=== PATIENT | female | born 1990 | race Caucasian/White ===

== ENCOUNTER 2017-02-11 17:20 | Emergency (ER) | payer MEDICARE, OTHER ==
[2017-02-11] MEDS: MAG HYDROX/AL HYDROX/SIMETH 30 ML, Lidocaine 2%Visc 15ml 20 MG, PHENobarb/HYOSCY/ATROPI... PO ONE ×3 (17:45)
[2017-02-11 18:03] VITALS: BP 115/64
[2017-02-11] MEDS ORDERED: MAG HYDROX/AL HYDROX/SIMETH 30 ML UDC PO ONE (18:21)
[2017-02-11] MEDS ORDERED: Lidocaine 2%Visc 15ml 20 MG/ML UDC ONE (18:21)
--- NOTE | 2017-02-11 19:12 | ED Physician Documentation ---
Abdominal Pain - HISTORIAN Historian: patient, other (care givers) - HPI Stated Complaint: Drank bleach Chief Complaint: Abdominal Pain Additonal Information: pt drank 1 cup bleech diluted armand water approx 1730 now mouth burning and stomach upset-stiles. called poison control gave gi coctail and pt to brush teeth now obvserve w/anti emetics as needed. verbal orders given unable to find in computer orders Onset: hours (1729) Duration: constant Timing: still present Context: bad food Severity: moderate Quality: burning Associated Symptoms: nausea, vomiting (x1 shortly after ingestion) Further Comments: yes (pt did this once before tx [facility]) - ROS CONST: no problems GI/: none CVS/RESP: none EYES/ENT: none MS/SKIN/LYMPH: none NEURO/PSYCH: anxiety - SOCIAL HX Smoking History: non-smoker Alcohol Use: none - FAMILY HX Family History: none - PAST HX Past History: other (bipolar and mental retardation) Home Medications: Ambulatory Orders Medication Instructions Recorded Aripiprazole [Abilify] 30 mg PO DAILY 02/11/17 Carbamazepine [Tegretol] 200 mg PO BID 02/11/17 Divalproex Sodium [Depakote ER] 250 mg PO BID 02/11/17 Divalproex Sodium [Depakote] 500 mg PO BID 02/11/17 Docusate Sodium [Dok] 100 mg PO PRN 02/11/17 Erythromycin Base/Ethanol 30 gm TP HS 02/11/17 [Erythromycin 2% Gel] Hydroxyzine Pamoate [Vistaril] 25 mg PO TID 02/11/17 Ibuprofen [Advil] 600 mg PO Q6 PRN 02/11/17 Medroxyprogesterone Acetate 150 mg IM DIRECTED 02/11/17 [Depo-Provera] Trazodone HCl 50 mg PO HS PRN 02/11/17 Trazodone HCl [Desyrel] 100 mg PO HS 02/11/17 Venlafaxine HCl [Effexor Xr] 150 mg PO DAILY 02/11/17 clonazePAM [Klonopin] 0.5 mg PO BID 02/11/17 Allergies/Adverse Reactions: Allergies Allergy/AdvReac Type Severity Reaction Status Date / Time No Known Allergies Allergy Unverified 02/11/17 17:43 - VITAL SIGNS Vital Signs: Vital Signs Temp Pulse Resp BP Pulse Ox 84 16 115/64 96 02/11/17 18:01 02/11/17 17:34 02/11/17 18:01 02/11/17 18:01 - REVIEWED ASSESSMENTS Nursing Assessment Reviewed: Yes Vitals Reviewed: Yes Progress - Results/Orders Results/Orders: pt sig better w/o furthur c/o but weill obs in waiting room send [id number] min if no occurence. pt will have care givers w/her all noct ED Results Lab/Radiology - Orders Orders: ED Orders Category Date Time Status Lidocaine 2%Visc 15ml [Xylocaine] Med 02/11/17 18:21 Discontinued 300 mg .ROUTE .STK-MED ONE Mag Hydrox/Al Hydrox/Simeth [Mylanta] Med 02/11/17 18:21 Discontinued 30 ml PO .STK-MED ONE Abdominal Pain Physical Exam - Physical Exam General Appearance: mild distress EENT: eye inspection normal NECK: normal inspection, thyroid normal, supple RESPIRATORY: no resp distress, breath sounds normal CVS: reg rate & rhythm, heart sounds normal ABDOMEN: soft, tenderness (mild tenderness no guarding) EXTREMITIES: non-tender, normal range of motion, no evidence of injury, no edema NEURO: oriented X3, motor nml, sensation nml, mood/affect nml Vital Signs: Vital Signs Temp Pulse Resp BP Pulse Ox 84 16 115/64 96 02/11/17 18:01 02/11/17 17:34 02/11/17 18:01 02/11/17 18:01 Discharge Clincal Impression: foriegn body ingestion-bleech, Mild mental retardation, depression anxiety Referrals: Primary Doctor,No [Primary Care Provider] - 2 Days Additional Instructions: close observation by care givers Home Medications: Ambulatory Orders Aripiprazole [Abilify] 30 mg PO DAILY 02/11/17 Carbamazepine [Tegretol] 200 mg PO BID 02/11/17 Divalproex Sodium [Depakote ER] 250 mg PO BID 02/11/17 Divalproex Sodium [Depakote] 500 mg PO BID 02/11/17 Docusate Sodium [Dok] 100 mg PO PRN 02/11/17 Erythromycin Base/Ethanol [Erythromycin 2% Gel] 30 gm TP HS 02/11/17 Hydroxyzine Pamoate [Vistaril] 25 mg PO TID 02/11/17 Ibuprofen [Advil] 600 mg PO Q6 PRN 02/11/17 Medroxyprogesterone Acetate [Depo-Provera] 150 mg IM DIRECTED 02/11/17 Trazodone HCl 50 mg PO HS PRN 02/11/17 Trazodone HCl [Desyrel] 100 mg PO HS 02/11/17 Venlafaxine HCl [Effexor Xr] 150 mg PO DAILY 02/11/17 clonazePAM [Klonopin] 0.5 mg PO BID 02/11/17 Comments: DR ANDRADE will assume care if needed after shift change Condition: Good Disposition: 01 HOME, SELF-CARE Decision to Admit: NO Decision Time: 19:12
== END 2017-02-11 18:55 | disposition home or self-care (01) ==
LOC: ED 17:20
DX: T54.94XA Toxic effect of unspecified corrosive substance, undetermined, initial encounter (principal); X58.XXXA Exposure to other specified factors, initial encounter; Y93.9 Activity, unspecified; Y99.9 Unspecified external cause status; F70 Mild intellectual disabilities; F32.9 Major depressive disorder, single episode, unspecified; F41.8 Other specified anxiety disorders
CPT/HCPCS: A9270 ×2; 99283

== ENCOUNTER 2018-01-07 21:45 | Emergency (ER) | payer MEDICARE, OTHER ==
[2018-01-07] MEDS ORDERED: 0.9 % SODIUM CHLORIDE 1,000 ML IV SCH (22:30)
[2018-01-07] MEDS ORDERED: 0.9 % SODIUM CHLORIDE 1,000 ML IV ONE (22:45)
[2018-01-07 23:14] LABS: BASOPHILS % 0.4 (0.0-1.5); EOSINOPHILS % 2.8 % (0.0-6.8); MEAN CORPUSCULAR HEMOGLOBIN 29.2 pg (28.0-34.0); MONOCYTES % 5.7 % (0.0-11.0); NEUTROPHILS # 2.5 # k/uL (1.4-7.7)
[2018-01-07 23:15] LABS: eGFR (African) > 60; eGFR (Non-African) > 60
--- NOTE | 2018-01-07 23:51 | ED Physician Documentation ---
General Adult - HISTORIAN Historian: patient - HPI Stated Complaint: Possible drug overdose Chief Complaint: General Adult Additional Information: Pt. claims she took 7 Trazadone, 3 Abilify, 9 Depakoate, 4 Lamictal Onset: minutes (30) Timing: still present Severity: other (n/a, pt in no distress at all) Modifying Factors: took another pt's medication to see what it would do Location: care facility Further Comments: no - ROS CONST: no problems EYES/ENT: none CVS/RESP: none GI/: none MS/SKIN/LYMPH: none NEURO/PSYCH: denies: headache, fainting, dizziness, tingling, numbness, difficulty walking, difficulty with speech, anxiety, depression - PAST HX Past History: other (bipolar, mr) Other History: none Surgeries/Procedures: none Immunizations: referred to PCP Allergies/Adverse Reactions: Allergies Allergy/AdvReac Type Severity Reaction Status Date / Time No Known Allergies Allergy Verified 01/07/18 22:04 Home Medications: Ambulatory Orders Medication Instructions Recorded Aripiprazole [Abilify] 30 mg PO DAILY 02/11/17 Carbamazepine [Tegretol] 200 mg PO BID 02/11/17 Divalproex Sodium [Depakote] 1,000 mg PO BID 02/11/17 Docusate Sodium [Dok] 100 mg PO DAILY 02/11/17 Erythromycin Base/Ethanol 30 gm TP HS 02/11/17 [Erythromycin 2% Gel] Hydroxyzine Pamoate [Vistaril] 25 mg PO TID 02/11/17 Ibuprofen [Advil] 600 mg PO Q6 PRN 02/11/17 Medroxyprogesterone Acetate 150 mg IM DIRECTED 02/11/17 [Depo-Provera] Trazodone HCl [Desyrel] 100 mg PO HS 02/11/17 Venlafaxine HCl [Effexor Xr] 225 mg PO DAILY 02/11/17 clonazePAM [Klonopin] 0.5 mg PO BID 02/11/17 Acetaminophen [Tylenol] 325 mg PO Q4 PRN 01/07/18 Cetirizine HCl [Zyrtec] 10 mg PO DAILY 01/07/18 Mag Hydrox/Aluminum Hyd/Simeth 15 ml PO PRN PRN 01/07/18 [Mylanta] Polyethylene Glycol 3350 [Miralax] 17 gm PO 1100 01/07/18 - SOCIAL HX Smoking History: cigarettes Alcohol Use: none Drug Use: none - FAMILY HX Family History: Yes - VITAL SIGNS Vital Signs: Vital Signs Temp Pulse Resp BP Pulse Ox 98.6 F 90 18 133/65 96 01/07/18 21:45 01/07/18 21:45 01/07/18 21:45 01/07/18 21:45 01/07/18 21:45 - REVIEWED ASSESSMENTS Nursing Assessment Reviewed: Yes Vitals Reviewed: Yes Progress - Results/Orders Results/Orders: cbc, cmp, ua, udes, valproic acid level, lamictal level ordered - Progress Progress: pt. stable entire time in er Critical Care Note - Critical Care Note Total Time (mins): 0 ED Results Lab/Radiology - Lab Results Lab Results: Lab Results 01/07/18 01/07/18 22:55 22:55 WBC 5.80 K/ul K/ul (4.00-12.00) RBC 4.50 M/ul M/ul (3.90-5.20) Hgb 13.1 g/dL g/dL (12.0-16.0) Hct 40.0 % % (34.5-46.5) MCV 89.0 fl fl (80.0-100.0) MCH 29.2 pg pg (28.0-34.0) MCHC 32.8 g/dL g/dL (30.0-36.0) RDW 12.4 % % (11.3-14.3) Plt Count 166 K/mm3 K/mm3 (130-400) Neut % (Auto) 43.1 % % (39.0-79.0) Lymph % (Auto) 46.5 % % (16.0-50.0) [place] % (Auto) 5.7 % % (0.0-11.0) Eos % (Auto) 2.8 % % (0.0-6.8) Baso % (Auto) 0.4 (0.0-1.5) Neut # (Auto) 2.5 # k/uL # k/uL (1.4-7.7) Lymph # (Auto) 2.7 # k/uL # k/uL (0.6-4.0) [place] # (Auto) 0.3 # k/uL # k/uL (0.0-0.9) Eos # (Auto) 0.2 # k/uL # k/uL (0.0-0.6) Baso # (Auto) 0.0 # k/uL # k/uL (0.0-0.5) Reactive Lymphs % 1.6 % % (0.0-5.0) Reactive Lymphs # 0.1 # k/uL # k/uL (0.0-0.8) Sodium 142 mmol/L mmol/L (136-145) Potassium 4.1 mmol/L mmol/L (3.5-5.1) Chloride 103 mmol/L mmol/L (98-107) Carbon Dioxide 27 mmol/L mmol/L (22-30) BUN 12 mg/dL mg/dL (7-17) Creatinine 0.70 mg/dL mg/dL (0.52-1.04) Est GFR ( Amer) > 60 (60 - ) Est GFR (Non-Af Amer) > 60 (60 - ) Glucose 109 mg/dL H mg/dL (74-106) Calcium 9.1 mg/dL mg/dL (8.4-10.2) Total Bilirubin 0.5 mg/dL mg/dL (0.2-1.3) AST 33 U/L U/L (15-46) ALT 46 U/L U/L (13-69) Alkaline Phosphatase 84 U/L U/L (38-126) Total Protein 6.7 g/dL g/dL (6.3-8.2) Albumin 4.0 g/dL g/dL (3.5-5.0) - Radiology Radiology Impressions: none ordered - Orders Orders: ED Orders Category Date Time Status Place IV Lock 1T Care 01/07/18 22:09 Active CBC/PLATELET/DIFF Routine Lab 01/07/18 22:55 Completed CMP Routine Lab 01/07/18 22:55 Completed DRUG SCREEN URINE MEDICAL ONLY Routine Lab 01/07/18 Ordered LAMOTRIGINE LEVEL Routine Lab 01/07/18 22:55 Received URINALYSIS Routine Lab 01/07/18 22:08 Ordered VALPROIC ACID LEVEL Routine Lab 01/07/18 22:55 Received 0.9 % Sodium Chloride [Normal Saline] 1,000 ml Med 01/07/18 22:30 Ordered IV .Q1H EKG WITH COMPARISON Routine Ther 01/07/18 Ordered General Adult Physical Exam - PHYSICAL EXAM GENERAL APPEARANCE: no distress EENT: eye inspection normal, ENT inspection normal, pharynx normal, no signs of dehydration, APM, no nystagmus, TM's nml NECK: normal inspection, thyroid normal, supple RESPIRATORY: no resp distress, chest non-tender, breath sounds normal CVS: reg rate & rhythm, heart sounds normal, equal pulses, no murmur ABDOMEN: soft, no organomegaly, normal bowel sounds, no distension, tenderness ( generalized) BACK: normal inspection, no CVA tenderness SKIN: warm/dry, normal color EXTREMITIES: non-tender, normal range of motion, no evidence of injury, no edema NEURO: oriented X3, CN's nml as tested, motor nml, sensation nml, mood/affect nml Discharge Clincal Impression: Drug ingestion Qualifiers: Encounter type: initial encounter Injury intent: undetermined intent Qualified Code(s): T50.904A - Poisoning by unspecified drugs, medicaments and biological substances, undetermined, initial encounter Referrals: Martin Lamb [Primary Care Provider] - 2 Days Comments: Patient monitored for over 2 hours without any adverse changes. All labs, ekg unremarkable. There is serious question whether this pt. took any of the alleged medications. She is exhibiting no evidence of adverse effect 4 hours after ingestion. All alleged medications investigated and pt. not exposed to large enough doses for any harm. Pt. discharged in stable condition to correction to be followed by primary care. Condition: Stable Disposition: 01 HOME, SELF-CARE Decision to Admit: NO Decision Time: 23:55
[2018-01-08 00:16] VITALS: BP 109/51
[2018-01-08 00:34] LABS: APPEARANCE,URINE CLEAR (CLEAR); COLOR,URINE YELLOW (YELLOW)
[2018-01-08 00:35] LABS: OCCULT BLOOD,URINE NEGATIVE (NEGATIVE); PH URINE 6.5 (5.0 - 8.0); UROBILINOGEN URINE 0.2 Eu (0.2-1.0)
[2018-01-08 00:36] LABS: CANNABINOIDS NEGATIVE ng/mL (< 50); METHYLENEDIOXYMETHAMPHETAMINE NEGATIVE ng/mL (<500)
[2018-01-08 20:20] LABS: VALPROIC ACID LEVEL 78.2 ug/mL (50.0-100.0)
== END 2018-01-08 00:15 | disposition home or self-care (01) ==
LOC: ED 21:45
DX: T50.904A Poisoning by unspecified drugs, medicaments and biological substances, undetermined, initial encounter (principal); Y92.9 Unspecified place or not applicable
CPT/HCPCS: 80053; 80164; 80171; 81002; 85025; 93005; 96360; 99284; G0481; J7030; 80377; 96365; 99283; S1016

== ENCOUNTER 2018-09-01 16:42 | Emergency (ER) | payer MEDICARE, OTHER ==
--- NOTE | 2018-09-01 17:31 | ED Physician Documentation ---
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 pt presents to the ED via POV c/o fall off horse at slow speed falling on her left side. pt c/o back pain 04/09. pt reports she did not hit her head or lose consciousness, no loss of bowel or bladder control, no numbness or tingling able to ambulate without difficulty. pt reports sitting makes the pain worse. pt lives in a intermediate due to mild MR and psych hx. pt has hx of bipolar/depression. pt denies current chest pain, dyspnea, syncope/near syncope, headache, dizziness, visual disturbances, n/v/d, fever/chills, rash, sick contacts, dysuria, trauma. melena or hematochezia, bleeding or easy bruising, change in bowel or bladder function, no recent weight loss/gain, anxiety or depression. ROS Negative unless otherwise specified - ROS CONST: other (back pain ) - PAST HX Past History: other (MR, bipolar anxiety) Allergies/Adverse Reactions: Allergies Allergy/AdvReac Type Severity Reaction Status Date / Time No Known Allergies Allergy Verified 09/01/18 16:53 Home Medications: Ambulatory Orders Medication Instructions Recorded Aripiprazole [Abilify] 30 mg PO DAILY 02/11/17 Carbamazepine [Tegretol] 200 mg PO BID 02/11/17 Divalproex Sodium [Depakote] 1,000 mg PO BID 02/11/17 Docusate Sodium [Dok] 100 mg PO DAILY 02/11/17 Hydroxyzine Pamoate [Vistaril] 25 mg PO TID 02/11/17 Ibuprofen [Advil] 600 mg PO Q6 PRN 02/11/17 Medroxyprogesterone Acetate 150 mg IM DIRECTED 02/11/17 [Depo-Provera] Trazodone HCl [Desyrel] 100 mg PO HS 02/11/17 Venlafaxine HCl [Effexor Xr] 225 mg PO DAILY 02/11/17 clonazePAM [Klonopin] 0.5 mg PO BID 02/11/17 Acetaminophen [Tylenol] 325 mg PO Q4 PRN 01/07/18 Cetirizine HCl [Zyrtec] 10 mg PO DAILY 01/07/18 Mag Hydrox/Aluminum Hyd/Simeth 15 ml PO PRN PRN 01/07/18 [Mylanta] Polyethylene Glycol 3350 [Miralax] 17 gm PO 1100 01/07/18 CloNIDine HCL [Catapress] 2 tab PO DAILY 09/01/18 Haloperidol 1 tab PO DAILY 09/01/18 Metformin HCl [Glucophage] 1 tab PO DAILY 09/01/18 - SOCIAL HX Smoking History: non-smoker Alcohol Use: none Drug Use: none - FAMILY HX Family History: No - VITAL SIGNS Vital Signs: Vital Signs Temp Pulse Resp BP Pulse Ox 100 H 15 165/108 96 09/01/18 16:50 09/01/18 16:50 09/01/18 16:50 09/01/18 16:50 - REVIEWED ASSESSMENTS Nursing Assessment Reviewed: Yes Vitals Reviewed: Yes ED Results Lab/Radiology - Radiology Radiology Impressions: Report Submission Date: Sep 01, 2018 6:11:13 PM NUCLEAR CARDIOLOGY TECHNOLOGIST Patient Study Name: DORIAN CORBIN Date: Sep 01, 2018 5:30:42 PM NUCLEAR CARDIOLOGY TECHNOLOGIST Modality Type: CT\SR Gender: F Description: CT BRAIN W/O CONTRAST : 89 Institution: [facility] Physician: LEAH HIDALGO CT head without contrast HISTORY Fall, head injury. TECHNIQUE Images through the brain were obtained without contrast. FINDINGS No mass, midline shift, obstructive hydrocephalous or acute intracranial hemorrhage is present. The ventricles are normal. No extra-axial fluid collection is identified. There is partial opacification of the right maxillary sinus. IMPRESSION No acute intracranial process. Electronically signed on Sep 01, 2018 6:11:13 PM NUCLEAR CARDIOLOGY TECHNOLOGIST by: Perfecto Bradley Report Submission Date: Sep 01, 2018 6:11:55 PM NUCLEAR CARDIOLOGY TECHNOLOGIST Patient Study Name: DORIAN CORBIN Date: Sep 01, 2018 5:31:22 PM NUCLEAR CARDIOLOGY TECHNOLOGIST Modality Type: DX Gender: F Description: SPINE : 89 Institution: [facility] Physician: LEAH HIDALGO Lumbar spine, AP and lateral. HISTORY Fall, injury. FINDINGS No fracture, subluxation or abnormal bone production or destruction is identified. The vertebral bodies and intervertebral disk spaces are of normal height. IMPRESSION Normal. Electronically signed on Sep 01, 2018 6:11:55 PM NUCLEAR CARDIOLOGY TECHNOLOGIST by: Perfecto Bradley Report Submission Date: Sep 01, 2018 6:13:02 PM NUCLEAR CARDIOLOGY TECHNOLOGIST Patient Study Name: DORIAN CORBIN Date: Sep 01, 2018 5:33:02 PM NUCLEAR CARDIOLOGY TECHNOLOGIST Modality Type: CT\SR Gender: F Description: CT C-SPINE W/O CONTRAS : 89 Institution: [facility] Physician: LEAH HIDALGO CT cervical spine HISTORY Fall, injury, pain. TECHNIQUE Images through the cervical spine were obtained. Multiplanar reconstructions were performed. FINDINGS No fracture, subluxation or abnormal bone production or destruction is identified. The vertebral bodies and intervertebral disk spaces are of normal height. Spinal canal, facet joints and prevertebral soft tissues are normal. IMPRESSION Normal. Electronically signed on Sep 01, 2018 6:13:02 PM NUCLEAR CARDIOLOGY TECHNOLOGIST by: Perfecto Bradley - Orders Orders: ED Orders Category Date Time Status CT BRAIN W/O CONTRAST Stat Exams 09/01/[address] C-SPINE W/O CONTRAST Stat Exams 09/01/18 Ordered L SPINE 2 OR 3 VIEWS [RAD] Stat Exams 09/01/18 Ordered URINE HCG Stat Lab 09/01/18 17:04 Ordered General Adult Physical Exam - PHYSICAL EXAM GENERAL APPEARANCE: no distress EENT: eye inspection normal, ENT inspection normal, pharynx normal, no signs of dehydration, PAM, no nystagmus, TM's nml NECK: normal inspection, thyroid normal. No: lymphadenopathy, meningismus, Brudzinski's RESPIRATORY: no resp distress, chest non-tender, breath sounds normal. No: wheezes, rales, rhonchi CVS: reg rate & rhythm, heart sounds normal, equal pulses, no murmur, no gallop, PMI nml, no JVD, no friction rub, 24 ABDOMEN: soft, no organomegaly, normal bowel sounds, no abdominal bruit, no distension BACK: other (mild paravertebral tenderness. L spine tenderness. ) EXTREMITIES: non-tender, normal range of motion, no evidence of injury, no edema, other (no ecchymosis) NEURO: oriented X3, motor nml, sensation nml, mood/affect nml Discharge Clincal Impression: Mild mental retardation Fall Qualifiers: Encounter type: initial encounter Qualified Code(s): W19.XXXA - Unspecified fall, initial encounter Referrals: Martin Lamb [Primary Care Provider] - 2 Days Additional Instructions: Use tylenol and ibuprofen for pain Rest Return if worse seek medical care immediately if difficult to wake, difficulty breathing, feeling faint or fainting, increased rash, chest pain, shortness of breath, or fever not controlled by tylenol/motrin or any concern. follow up with primary care next week or before if not improving as expected. PLEASE UNDERSTAND THAT THIS IS AN EMERGENCY EVALUATION FOR YOUR COMPLAINT AND BY NATURE IS LIMITED AND NOT A SUBSTITUTE FOR ONGOING MEDICAL CARE. EVEN THOUGH TE ST RESULTS AND TREATMENT PLAN WERE EXPLAINED THERE MAY BE A NEED FOR ADDITIONAL TESTING TO FULLY DETERMINE THE EXTENT OF YOUR ILLNESS/INJURY/OR CONCERN SO YOU SHOULD CONTACT AND OR ESTABLISH WITH A PRIMARY CARE PROVIDER (OR REFERRAL DOCTOR IF APPLICABLE) FOR AN APPOINTMENT SOON POSSIBLE Condition: Good Disposition: 01 HOME, SELF-CARE Decision to Admit: NO Date of Decison to Admit: 09/01/18 Decision Time: 18:22
[2018-09-01 18:33] VITALS: BP 142/72
--- NOTE | 2018-09-02 00:34 | Diagnostic Imaging Report ---
LEAH HIDALGO [facility] [address] [facility] [address] [place] [address]. [id number] Report Submission Date: Sep 01, 2018 6:11:13 PM STRIP MACHINE TENDER Patient Study Name: DORIAN CORBIN Date: Sep 01, 2018 5:30:42 PM STRIP MACHINE TENDER Modality Type: CT\SR Gender: F Description: CT BRAIN W/O CONTRAST : 89 Institution: [facility] Physician: LEAH HIDALGO CT head without contrast HISTORY Fall, head injury. TECHNIQUE Images through the brain were obtained without contrast. FINDINGS No mass, midline shift, obstructive hydrocephalous or acute intracranial hemorrhage is present. The ventricles are normal. No extra-axial fluid collection is identified. There is partial opacification of the right maxillary sinus. IMPRESSION No acute intracranial process. Electronically signed on Sep 01, 2018 6:11:13 PM STRIP MACHINE TENDER by: Perfecto SIMON
--- NOTE | 2018-09-02 00:35 | Diagnostic Imaging Report ---
LEAH HIDALGO [facility] [address] [facility] [address] [place] [address]. [id number] Report Submission Date: Sep 01, 2018 6:13:02 PM OPERATOR LIGHTS Patient Study Name: DORIAN CORBIN Date: Sep 01, 2018 5:33:02 PM OPERATOR LIGHTS Modality Type: CT\SR Gender: F Description: CT C-SPINE W/O CONTRAS : 89 Institution: [facility] Physician: LEAH HIDALGO CT cervical spine HISTORY Fall, injury, pain. TECHNIQUE Images through the cervical spine were obtained. Multiplanar reconstructions were performed. FINDINGS No fracture, subluxation or abnormal bone production or destruction is identified. The vertebral bodies and intervertebral disk spaces are of normal height. Spinal canal, facet joints and prevertebral soft tissues are normal. IMPRESSION Normal. Electronically signed on Sep 01, 2018 6:13:02 PM OPERATOR LIGHTS by: Perfecto SIMON
--- NOTE | 2018-09-02 00:38 | Diagnostic Imaging Report ---
LEAH HIDALGO [facility] [address] [facility] [address] [address] Report Submission Date: Sep 01, 2018 6:11:55 PM INDUSTRIAL ENGINEERING INTERN Patient Study Name: DORIAN CORBIN Date: Sep 01, 2018 5:31:22 PM INDUSTRIAL ENGINEERING INTERN Modality Type: DX Gender: F Description: SPINE : 89 Institution: [facility] Physician: LEAH HIDALGO Lumbar spine, AP and lateral. HISTORY Fall, injury. FINDINGS No fracture, subluxation or abnormal bone production or destruction is identified. The vertebral bodies and intervertebral disk spaces are of normal height. IMPRESSION Normal. Electronically signed on Sep 01, 2018 6:11:55 PM INDUSTRIAL ENGINEERING INTERN by: Perfecto SIMON
== END 2018-09-01 18:32 | disposition home or self-care (01) ==
LOC: ED 16:42
DX: M54.9 Dorsalgia, unspecified (principal); F70 Mild intellectual disabilities; V80.010A Animal-rider injured by fall from or being thrown from horse in noncollision accident, initial encounter; Y93.52 Activity, horseback riding; Y92.9 Unspecified place or not applicable
CPT/HCPCS: 70450; 72100; 72125; 81025; 99283; 99285